=== PATIENT | male | born 1945 | race Caucasian/White ===

== ENCOUNTER 2017-12-01 17:10 | Emergency (ER) | payer OTHER ==
[~2017-12-01 17:10] MED LIST: SULF-198 PO
[2017-12-01 17:14] VITALS: BP 151/79
--- NOTE | 2017-12-01 17:15 | ER Report ---
History and Physical Time Seen By MD: 17:14 (DYLAN MACHUCA) Time Seen By MD: 17:18 (GARO FREY) HPI/ROS CHIEF COMPLAINT: Sore throat HISTORY OF PRESENT ILLNESS: This is a 72-year-old male who presents to the emergency department with his son for a sore throat. Patient states that over the last week to week and a half he's had a sore throat, nonproductive cough he thinks this is from postnasal drip. Patient also states that over the last several days he's had some aches and chills. Patient also states that he has some pressure in his left ear and he feels like his eustachian tube isn't draining properly. The son was concerned that the patient didn't recognize him when he came home from work tonight however talking with patient he had just woken up from a nap and said he didn't recognize his son with the had on. Patient denies headaches, chest pain, shortness of breath, nausea, vomiting or diarrhea. REVIEW OF SYSTEMS: Constitutional: As above. Eyes: No discharge. ENT: As above. Cardiovascular: No chest pain, no palpitations. Respiratory: As above. Gastrointestinal: No abdominal pain, no vomiting. Genitourinary: No hematuria. Musculoskeletal: No back pain. Skin: No rashes. Neurological: No headache. (GARO FREY) Allergies: Coded Allergies: No Known Drug Allergies (Unverified , 12/01/17) Home Meds Reported Medications Atorvastatin Calcium (LIPITOR) 10 Mg Tablet, 1 TAB PO QDAY, TAB 12/01/17 Potassium Chloride (POTASSIUM CHLORIDE) 10 Meq Capsule.er, 10 MEQ PO 12/01/17 Metoprolol Tartrate (METOPROLOL TARTRATE) 25 Mg Tablet, 1 TAB PO BID, TAB 12/01/17 Lisinopril (LISINOPRIL) 40 Mg Tablet, 40 MG PO QDAY, TAB 12/01/17 Amlodipine Besylate (AMLODIPINE BESYLATE) 10 Mg Tablet, 1 TAB PO QDAY, TAB 12/01/17 Furosemide (FUROSEMIDE) 40 Mg Tablet, 2 TAB PO DAILY, TAB 12/01/17 Warfarin Sodium (WARFARIN SODIUM) 5 Mg Tablet, 2 MG PO QDAY, TAB 12/01/17 Discontinued Scripts Sulfamethoxazole/Trimet 800-160 Mg Tab (BACTRIM DS TABLET) 1 Each Tablet, 1 TAB PO Q12H, #14 MG 0 Refills TAKE ONE TABLET BY MOUTH EVERY TWELVE HOURS Prov:BEAU CHOUDHARY MD 08/24/17 Past Medical/Surgical History Patient has a past medical and surgical history of CVA, with left-sided weakness , hypertension, A. fib, hypercholesterolemia, pneumonia, GERD, gout, multiple fractures, arthritis, wears glasses, tonsillectomy. (GARO FREY-EVANGELINA) Reviewed Nurses Notes: Yes (GARO FREY) Constitutional Vital Sign - Last 24 Hours 12/01/17 17:14 Temp 97.0 Pulse 90 Resp 20 B/P (MAP) 151/79 Pulse Ox 96 O2 Delivery Room Air (GARO FREY) Physical Exam General Appearance: The patient is alert, has no immediate need for airway protection and no signs of toxicity. Eyes: Pupils equal and round no pallor or injection. EOMs intact. ENT, Mouth: Mucous membranes are moist. Erythema and exudate to the posterior oropharynx, no tonsillar hypertrophy. Inferior nasal turbinates are pink and moist, small amount of clear drainage. Respiratory: There are no retractions, lungs are clear to auscultation. Cardiovascular: Regular rate and rhythm, distant, no murmurs, clicks or rubs. Gastrointestinal: Abdomen is soft and non tender, no masses, bowel sounds normal. Neurological: Alert and oriented 4. Moving all extremities. Follows all commands. No focal neuro deficits. Patient does have mild left-sided pronator drift however the patient states this is at his baseline from a previous stroke. Cranial nerves II through XII intact and equal. Skin: Warm and dry, no rashes. Musculoskeletal: Neck is supple non tender. Extremities are nontender, nonswollen and have full range of motion. DIFFERENTIAL DIAGNOSIS: After history and physical exam differential diagnosis was considered for upper respiratory infection, strep throat, influenza, viral syndrome, postnasal drip. (GARO FREY-EVANGELINA) Medical Decision Making Data Points Laboratory Hematology Test 12/01/17 17:38 Chemistry Test 12/01/17 17:38 (GARO FREY-EVANGELINA) Depart Departure Latest Vital Signs Vital Signs Date Time Temp Pulse Resp B/P (MAP) Pulse Ox O2 Delivery O2 Flow Rate FiO2 12/01/17 17:14 97.0 90 20 151/79 96 Room Air (GARO FREY) DYLAN MACHUCA Dec 01, 2017 17:15 GARO FREY Dec 01, 2017 17:19
[2017-12-01] MEDS ORDERED: WARF-18 PO (17:22)
[2017-12-01] MEDS ORDERED: AMLO-99 PO (17:23)
[2017-12-01] MEDS ORDERED: FURO-47 PO (17:23)
[2017-12-01] MEDS ORDERED: POTA10CA40 PO (17:25)
[2017-12-01] MEDS ORDERED: LISI-374 PO (17:25)
[2017-12-01] MEDS ORDERED: ATOR10TA24 PO (17:25)
[2017-12-01] MEDS ORDERED: METO25TA93 PO (17:25)
--- NOTE | 2017-12-01 19:08 | ER Report ---
History and Physical Time Seen By MD: 17:20 Hx. of Stated Complaint: SORE THROAT FOR 8 DAYS UNABLE TO EAT WELL DUE TO THIS PROBLEM. SON IS CONCERNED ABOUT DISORIENTATION, BUT PT DOES NOT SHOW THESE SYMPTOMS C/O HOGAN AND BILAT EAR PAIN HPI/ROS CHIEF COMPLAINT: Sore throat HISTORY OF PRESENT ILLNESS: This is a 72-year-old male who presents to the emergency department with his son for a sore throat and left ear pain. Patient states that about a week to week and a half ago he developed a sore throat that has been getting worse and now has left ear pain and pressure. The son states that when he came home today he was concerned that his father didn't recognize him immediately when he walked through the door. Patient states that he just woke up from a nap when his son walked in the door didn't completely recognize his son due to hat that he was wearing. Son was nervous that he was having a stroke as he has had a stroke in the past. Patient is alert and oriented and appropriate. Patient states the only complaint he has is the sore throat and the ear pain and pressure. He denies headaches. Patient has post nasal drip. No fevers, aches, chills, nausea, vomiting, chest pain, shortness of breath or diarrhea. According the patient his also has a sore throat and his son now has a sore throat. REVIEW OF SYSTEMS: Constitutional: No fever, no chills. Eyes: No discharge. ENT: As above. Cardiovascular: No chest pain, no palpitations. Respiratory: No cough, no shortness of breath. Gastrointestinal: No abdominal pain, no vomiting. Genitourinary: No hematuria. Musculoskeletal: No back pain. Skin: No rashes. Neurological: No headache. Allergies: Coded Allergies: No Known Drug Allergies (Unverified , 12/01/17) Home Meds Reported Medications Atorvastatin Calcium (LIPITOR) 10 Mg Tablet, 1 TAB PO QDAY, TAB 12/01/17 Potassium Chloride (POTASSIUM CHLORIDE) 10 Meq Capsule.er, 10 MEQ PO 12/01/17 Metoprolol Tartrate (METOPROLOL TARTRATE) 25 Mg Tablet, 1 TAB PO BID, TAB 12/01/17 Lisinopril (LISINOPRIL) 40 Mg Tablet, 40 MG PO QDAY, TAB 12/01/17 Amlodipine Besylate (AMLODIPINE BESYLATE) 10 Mg Tablet, 1 TAB PO QDAY, TAB 12/01/17 Furosemide (FUROSEMIDE) 40 Mg Tablet, 2 TAB PO DAILY, TAB 12/01/17 Warfarin Sodium (WARFARIN SODIUM) 5 Mg Tablet, 2 MG PO QDAY, TAB 12/01/17 Discontinued Scripts Sulfamethoxazole/Trimet 800-160 Mg Tab (BACTRIM DS TABLET) 1 Each Tablet, 1 TAB PO Q12H, #14 MG 0 Refills TAKE ONE TABLET BY MOUTH EVERY TWELVE HOURS Prov:BEAU CHOUDHARY MD 08/24/17 Past Medical/Surgical History Patient has a past medical and surgical history of CVA with less sided weakness , A. fib, hypertension, hypercholesterolemia, pneumonia, gout, arthritis, wears glasses, tonsillectomy. Reviewed Nurses Notes: Yes Hx Substance Use Disorder: No Hx Alcohol Use: No Constitutional Vital Sign - Last 24 Hours 12/01/17 17:14 Temp 97.0 Pulse 90 Resp 20 B/P (MAP) 151/79 Pulse Ox 96 O2 Delivery Room Air Physical Exam General Appearance: The patient is alert, has no immediate need for airway protection and no signs of toxicity. Eyes: Pupils equal and round no pallor or injection. EOMs intact. ENT, Mouth: Mucous membranes are moist. Erythema and exudate to the posterior oropharynx. No edema. Mild bulging to the left TM, pearly biggs, landmarks noted , no injection. Respiratory: There are no retractions, lungs are clear to auscultation. Cardiovascular: Regular rate and rhythm, distant, no murmurs, clicks or rubs. Gastrointestinal: Abdomen is soft and non tender, no masses, bowel sounds normal. Neurological: Alert and oriented 4. Following all commands. No focal neuro deficits. Moving all extremities. Cranial nerves II through XII intact and equal. The patient does have left pronator drift however the patient states this is normal for him his previous stroke. Skin: Warm and dry, no rashes. Musculoskeletal: Neck is supple non tender. Extremities are nontender, nonswollen and have full range of motion. DIFFERENTIAL DIAGNOSIS: After history and physical exam differential diagnosis was considered for upper respiratory infection, viral syndrome, influenza, strep throat. Medical Decision Making Data Points Laboratory Hematology Test 12/01/17 17:38 Influenza Virus Type A (PCR) Negative (NEGATIVE) Influenza Virus Type B (PCR) Negative (NEGATIVE) Group A Streptococcus Screen Negative (NEGATIVE) Chemistry Test 12/01/17 17:38 Influenza Virus Type A (PCR) Negative (NEGATIVE) Influenza Virus Type B (PCR) Negative (NEGATIVE) Group A Streptococcus Screen Negative (NEGATIVE) ED Course/Re-evaluation ED Course The patient was admitted to room. A history physical were obtained. Differential diagnoses were considered. A rapid strep was obtained. An influenza was obtained. Negative flu negative strep. I did review these results with the patient and his son. I also reassured them that he does not have any signs or symptoms of stroke at this time. The patient states that he was joking around with his son this evening and the son became nervous. The left pronator drift that the patient has is normal according to the son and the patient. I did encourage the patient to try saline rinse or Afrin for the next several days. I also encouraged the patient to try a throat lozenge or or honey for his throat discomfort. I also encouraged patient to take ibuprofen or Tylenol as needed for his aches and pains. Encouraged patient to establish primary care here and follow up for any other concerns he may have. Patient was also encouraged to return to the emergency department for any other symptoms or any other concerns he may have. Decision to Disposition Date: Dec 01, 2017 Decision to Disposition Time: 19:05 Depart Departure Latest Vital Signs Vital Signs Date Time Temp Pulse Resp B/P (MAP) Pulse Ox O2 Delivery O2 Flow Rate FiO2 12/01/17 17:14 97.0 90 20 151/79 96 Room Air Impression: Primary Impression: Viral syndrome Condition: Improved Disposition: HOME OR SELF-CARE Patient Instructions: Viral Syndrome (ED) Additional Instructions: Drink plenty of water. At plenty of rest. Try a teaspoon of honey 4-5 times a day for cough and throat irritation. Try saline rinses for your nasal congestion. You can try Afrin, 2 sprays in each nostril, 2 times a day for 3 days. If no improvement in the next week to follow up with your primary care provider. Return to the emergency department for any other concerns or worsening symptoms. MD Consult Note: GARO PhillipsP-BC Dec 01, 2017 19:08
== END 2017-12-01 19:15 | disposition home or self-care (01) ==
LOC: ER 17:25
DX: B34.9 Viral infection, unspecified (principal)
CPT/HCPCS: 87081; 87502; 87880; 99282